=== PATIENT | male | born 1985 | race African-American/Black ===

== ENCOUNTER 2017-06-27 04:36 | Emergency (ER) | payer OTHER ==
[2017-06-27 05:11] VITALS: BP 126/72; PULSE 76; TEMP 98.3; BMI 31.1
--- NOTE | 2017-06-27 05:23 | PDOC ---
History of Present Illness - General Chief Complaint: Toothache Stated Complaint: TOOTHACHE/INFECTION Time Seen by Provider: 06/27/17 04:51 History Source: Patient Exam Limitations: No Limitations - History of Present Illness Initial Comments: 06/27/17 05:11 The patient is 31M with no significant PMH who presents to the ED with tooth pain. He states that his crown on tooth 18 fell off a few days ago by itself. Since then it has been bleeding w/ black pieces coming out of it. The pain is throbbing and radiating to his muslim and down his jaw. Surg: none Social: none All: peanuts, ibuprofen Past History - Past Medical History Allergies/Adverse Reactions: Allergies Allergy/AdvReac Type Severity Reaction Status Date / Time ibuprofen [From Motrin] Allergy Mild Rash Verified 06/27/17 05:07 No Known Drug Allergies Allergy Verified 06/27/17 05:06 PEANUTS Allergy Unknown Uncoded 06/27/17 05:06 Home Medications: Ambulatory Orders Azathioprine [Imuran] 50 mg PO ASDIR 06/27/17 Ibuprofen [Motrin -] 600 mg PO TID 06/27/17 Oxycodone HCl/Acetaminophen [Percocet 5-325 mg Tablet] 1 tab PO Q6H #20 tablet MDD 4 06/27/17 HIV: No - Surgical History Orthopedic Surgery: Yes (L. Knee) - Psycho/Social/Smoking Cessation Hx Suicidal Ideation: No Smoking Status: No Smoking History: Never smoked Have you smoked in the past 12 months: No Number of Cigarettes Smoked Daily: 0 Hx Alcohol Use: No Drug/Substance Use Hx: No Substance Use Type: None Hx Substance Use Treatment: No Review of Systems - Review of Systems Able to Perform ROS?: Yes Is the patient limited [place] proficient: No Constitutional: Yes: Fever. No: Chills HEENTM: No: Recent change in vision, Double Vision ABD/GI: Yes: Nausea. No: Vomiting Neurological: Yes: Headache (L sided) *Physical Exam - Vital Signs Last Vital Signs Temp Pulse Resp BP Pulse Ox 98.3 F 76 16 126/72 98 06/27/17 04:37 06/27/17 04:37 06/27/17 04:37 06/27/17 04:37 06/27/17 04:37 - Physical Exam HEENT: positive: Other (Tooth 18 is black and tender to palpation) Respiratory/Chest: positive: Lungs Clear, Normal Breath Sounds. negative: Chest Tender, Respiratory Distress Cardiovascular: positive: Regular Rhythm, Regular Rate, S1, S2 Gastrointestinal/Abdominal: positive: Flat, Soft. negative: Tender, Guarding, Rebound, Tenderness Integumentary: positive: Dry, Warm. negative: Clammy, Diaphoresis Neurologic: positive: Fully Oriented, Alert, Normal Mood/Affect, Normal Response , Motor Strength 5/5 Medical Decision Making - Medical Decision Making 06/27/17 05:46 The patient is a 31M who is presenting with tooth pain. I have ordered 1mg percocet for his pain. I will reassess after he is given the meds. He is afebrile and there are no signs of cellulitis. 06/27/17 05:56 Patient states he feels better after percocet. I have ordered this outpatient until he can see his dentist. F/u was highly encouraged and patient is aware. He is ready for d/c. *DC/Admit/Observation/Transfer Diagnosis at time of Disposition: Toothache - Discharge Dispostion Disposition: HOME Condition at time of disposition: Improved Admit: No - Prescriptions Prescriptions: Oxycodone HCl/Acetaminophen [Percocet 5-325 mg Tablet] 1 tab PO Q6H #20 tablet MDD 4 - Patient Instructions Printed Discharge Instructions: DI for Tooth Decay, DI for Dental Pain Additional Instructions: Please return to the ER if symptoms persist, worsen, or if new symptoms arise. Print Language: TAJIK - Attestations Physician Attestion: 06/27/17 05:58 I, Dr. Caesar Lazar, attest that this document has been prepared under my direction and personally reviewed by me in its entirety. I further attest, that it accurately reflects all work, treatment, procedures and medical decision -making performed by me.
--- NOTE | 2017-06-27 06:27 | PDOC ---
Attending Attestation - Resident Resident Name: Caesar Lazar - ED Attending Attestation I have performed the following: I have examined & evaluated the patient, The case was reviewed & discussed with the resident, I agree w/resident's findings & plan, Exceptions are as noted - HPI HPI: 06/27/17 06:21 31yo M presents with tooth #17 pain s/p crown falling out while eating today. No fevers, or chills. [place] was placed 3 years ago. Has otherwise been in his OG - Physicial Exam PE: 06/27/17 06:23 GENERAL: Awake, alert, and fully oriented, in no acute distress holding ice pack to L cheek HEAD: No signs of trauma EYES: PERRLA, EOMI, sclera anicteric, conjunctiva clear ENT: Auricles normal inspection, hearing grossly normal, nares patent, oropharynx clear without exudates. Moist mucosa. Tooth 17 with missing crown (pt has in specimen bag) exposing a decayed tooth, +proximal gingival erythema without fluctuance NECK: Normal ROM, supple, no lymphadenopathy, JVD, or masses LUNGS: Breath sounds equal, clear to auscultation bilaterally. No wheezes, and no crackles HEART: Regular rate and rhythm, normal S1 and S2, no murmurs, rubs or gallops ABDOMEN: Soft, nontender, normoactive bowel sounds. No guarding, no rebound. No masses EXTREMITIES: Normal range of motion, no edema. No clubbing or cyanosis. No cords, erythema, or tenderness NEUROLOGICAL: Cranial nerves II through XII grossly intact. Normal speech, normal gait SKIN: Warm, Dry, normal turgor, no rashes or lesions noted. - Medical Decision Making 06/27/17 06:27 31yo M p/w tooth #17 pain s/p crown falling out. Pain well controlled with percocet. Pt given number for [place] [facility] to go at 9am for definitive management of his broken crown. In the meantime, prescribed percocet for pain control. Pt is amenable to plan. -DC
== END 2017-06-27 06:59 | disposition home or self-care (01) ==
LOC: JER 04:36
DX: K08.89 Other specified disorders of teeth and supporting structures (principal)
CPT/HCPCS: 99282-25

== ENCOUNTER 2018-03-06 14:14 | Emergency (ER) | payer OTHER ==
[2018-03-06 14:22] VITALS: BP 135/76; PULSE 92; TEMP 98; BMI 31.4
[2018-03-06] MEDS ORDERED: DEXAMETHASONE SOD PHOSPHATE 10 MG/1 ML VIAL IM ONE (14:47)
[2018-03-06] MEDS ORDERED: DEXAMETHASONE SOD PHOSPHATE 10 MG/1 ML VIAL ONE (14:51)
--- NOTE | 2018-03-06 14:54 | PDOC ---
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 Knee) - Suicide/Smoking/Psychosocial Hx Smoking Status: No Smoking History: Never smoked Have you smoked in the past 12 months: No Number of Cigarettes Smoked Daily: 0 Information on smoking cessation initiated: No Hx Alcohol Use: No Drug/Substance Use Hx: No Substance Use Type: None Hx Substance Use Treatment: No Review of Systems - Review of Systems Is the patient limited Kiswahili proficient: No Constitutional: No: Chills, Fever HEENTM: Yes: Mouth Pain, Mouth Swelling. No: Nose Congestion, Nose Bleeding, Throat Swelling, Dental Problems, Difficulty Swallowing Respiratory: No: Cough, Shortness of Breath, SOB at Rest Cardiac (ROS): No: Chest Pain *Physical Exam - Vital Signs Last Vital Signs Temp Pulse Resp BP Pulse Ox 98 F 92 H 18 135/76 100 03/06/18 14:20 03/06/18 14:20 03/06/18 14:20 03/06/18 14:20 03/06/18 14:20 - Physical Exam General Appearance: Yes: Nourished, Appropriately Dressed HEENT: positive: JOSE, Pharynx Normal, Other (multiple ulcerated vescular lesions noted in roof of mouth and posterior palate). 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 Zuñiga. Oral ulceration is usually managed with a course of prednisone and usually flares up during high stress times. Last flare was last March. Pt reports his work times has changed recently to overnight hours. He denies SOB, lip/tongue swelling, f/ Plan: RS sent dexa and percocet given in clinic Rx for short course of prednisone will be sent to pharmacy pt to f/u Rheumotologist 03/06/18 15:57 rapid strep negative. Pt reassessed, felt better 5 days course of prednisone given with instructions to f/u Rhemo *DC/Admit/Observation/Transfer Diagnosis at time of Disposition: Ulceration, oral mucosa - Discharge Dispostion Disposition: HOME Condition at time of disposition: Improved Admit: No - Prescriptions Prescriptions: Chlorhexidine Gluconate [Peridex -] 15 ml MM BID 5 Days #1 bottle Prednisone [Deltasone] 20 mg PO DAILY 5 Days #11 tablet - Referrals Referrals: Gio Polo MD [Primary Care Provider] - - Patient Instructions Printed Discharge Instructions: Aphthous Ulcers - Post Discharge Activity
== END 2018-03-06 15:54 | disposition home or self-care (01) ==
LOC: JERFT 14:14
PROC: 3E0333Z Introduction of Anti-inflammatory into Peripheral Vein, Percutaneous Approach (ICD-10-PCS; principal; 2018-03-06)
DX: K12.1 Other forms of stomatitis (principal); D89.89 Other specified disorders involving the immune mechanism, not elsewhere classified
CPT/HCPCS: 87070; 87430; 99281-25; J1100

== ENCOUNTER → 2023-01-14 | Day surgery (SDC) | payer OTHER ==
[2023-01-04 17:13] VITALS: BMI 28.5
[~2023-01-14] MED LIST: CLINDAMYCIN 600MG PREMIX IVPB 600 MG/50 ML BAG IVPB ONE; DEXAMETHASONE SOD PHOSPHATE 4 MG/1 ML VIAL ONE; EPINEPHrine 1:1,000 1,000 MCG/ML ML ONE; LACTATED RINGERS SOLUTION 1,000 ML IV SCH; MIDAZOLAM HCL 2 MG/2 ML SINGLE DOSE VIAL ONE; ONDANSETRON 4 MG/2 ML VIAL ONE; PROPOFOL 20 ML ONE; ROPIVACAINE HCL 0.5% 30ML VIAL ONE; oxyCODONE HCL 5 MG TABLET PO PRN
[2023-01-14] MEDS: ONDANSETRON 4 MG/2 ML VIAL IVPUSH PRN ×2 (11:03→11:04)
[2023-01-14 11:38] VITALS: RESP 18; TEMP 97.8
[2023-01-14 12:15] VITALS: BP 116/74; PULSE 74
== END | disposition home or self-care (01) ==
LOC: FASU 06:20
PROVIDERS: ATTEND Orthopaedic Surgery Sports Medicine
PROC: 0RQJ4ZZ Repair Right Shoulder Joint, Percutaneous Endoscopic Approach (ICD-10-PCS; 2023-01-14)
PROC: 0LS34ZZ Reposition Right Upper Arm Tendon, Percutaneous Endoscopic Approach (ICD-10-PCS; principal; 2023-01-14 09:06)
DX: S43.431A Superior glenoid labrum lesion of right shoulder, initial encounter (principal); X58.XXXA Exposure to other specified factors, initial encounter; Y93.9 Activity, unspecified; Y92.9 Unspecified place or not applicable
CPT/HCPCS: 94760; C1713